=== PATIENT | female | born 1990 | race Caucasian/White ===

== ENCOUNTER → 2023-08-29 | Outpatient (CLI) | payer OTHER ==
[2023-08-29 15:51] LABS: ALT 34 U/L (8-44); AST 16 U/L (13-35); Albumin 4.5 g/dL (3.8-4.9); Alkaline Phosphatase 67 U/L (41-126); BUN/Creat Ratio 20.75 Ratio (12.00-20.00); Blood Urea Nitrogen 16.6 mg/dL (9.0-27.0); Calcium 10.1 mg/dL (8.7-10.3); Carbon Dioxide 26.6 mmol/L (21.6-31.8); Chloride 107 mmol/L (96-109); Globulin 2.5 g/dL (1.6-3.3); Glucose 116 mg/dL (70-110); Magnesium 2.1 mg/dL (1.5-2.4); Potassium 4.5 mmol/L (3.5-5.5); Sodium 143 mmol/L (135-145); Total Bilirubin 0.2 mg/dL (0.3-1.2)
[2023-08-29 17:00] LABS: Basophils # (A) 0.06 X 10*3/uL (0.00-0.10); Basophils % (A) 0.9 %; Eosinophils # (A) 0.29 X 10*3/uL (0.04-0.35); Eosinophils % (A) 4.4 %; HCT 41.7 % (37.2-46.3); HGB 13.8 g/dL (12.0-15.0); Lymphocytes # (A) 1.61 X 10*3/uL (0.90-5.00); Lymphocytes % (A) 24.3 %; MCH 30.2 pg (27.0-32.0); MCHC 33.1 g/dL (32.0-37.0); MCV 91.2 FL (80.0-97.0); Mean Platelet Volume 8.3 FL (9.5-12.2); Monocytes # (A) 0.43 X 10*3/uL (0.20-1.00); Monocytes % (A) 6.5 %; NRBC Per 100 WBC 0 X 10*3/uL (0.00-0.01); Neutrophils % (A) 63.4 %; Platelet Count 984 X 10*3/uL (140-440); RBC 4.57 X 10*6/uL (4.10-5.20); RBC Morphology Normal (Normal); RDW 13.8 % (11.5-14.5); WBC 6.62 X 10*3/uL (4.50-10.00)
== END | disposition home or self-care (01) ==
LOC: LABWHC1 08:09
PROVIDERS: ATTEND Family Medicine
DX: R00.2 Palpitations (principal)
CPT/HCPCS: 36415; 80053; 83735; 84439; 84443; 85025

== ENCOUNTER → 2023-09-11 | Outpatient (CLI) | payer OTHER ==
--- NOTE | 2023-09-11 09:50 | CA ---
Transthoracic Echo Report Name: Karen Santos Age: 33 Gender: F : 1990 Exam Date: 09/11/2023 08:44 Exam Location: [facility] Ht (in): 63 Wt (lb): 264 Ordering Physician: Min Nelson DO Attending/Referring Phys: Min Nelson DO [employer]ist Cassandra Fuller, RDCS Procedure CPT: Indications: R00.2 palpitations Cardiac Hx: obesity, family HX Technical Quality: Fair Contrast 1: Total Dose (mL): Contrast 2: Total Dose (mL): MEASUREMENTS (Male / Female) Normal Values 2D ECHO LV Diastolic Diameter PLAX 4.7 cm 4.2 - 5.9 / 3.9 - 5.3 cm LV Systolic Diameter PLAX 3.2 cm IVS Diastolic Thickness 1.1 cm 0.6 - 1.0 / 0.6 - 0.9 cm LVPW Diastolic Thickness 1.1 cm 0.6 - 1.0 / 0.6 - 0.9 cm LV Relative Wall Thickness 0.5 RV Internal Dim ED PLAX 3.4 cm LA Systolic Diameter LX 4.0 cm 3.0 - 4.0 / 2.7 - 3.8 cm M-MODE Aortic Root Diameter MM 2.8 cm DOPPLER AV Peak Velocity 126.9 cm/s AV Peak Gradient 6.4 mmHg MV Area PHT 3.9 cm??? Mitral E Point Velocity 95.2 cm/s Mitral A Point Velocity 93.1 cm/s Mitral E to A Ratio 1.0 MV Deceleration Time 193.6 ms LV E' Lateral Velocity 7.5 cm/s Mitral E to LV E' Lateral Ratio 12.7 LV E' Septal Velocity 7.3 cm/s Mitral E to LV E' Septal Ratio 13.1 TR Peak Velocity 237.3 cm/s TR Peak Gradient 22.5 mmHg Right Ventricular Systolic Press 26.8 mmHg FINDINGS Left Ventricle Left ventricular ejection fraction is estimated at 55-60 %. Left ventricular cavity size normal. Mildly increased septal wall thickness. Mildly increased posterior wall thickness. Right Ventricle Mild right ventricular dilatation. Right ventricular systolic pressure within normal limits. Right Atrium Right atrium not well visualized. Left Atrium Mildly increased left atrial diameter. Mildly increased left atrial area. Mitral Valve Structurally normal mitral valve. No mitral stenosis, regurgitation or prolapse. Aortic Valve Trileaflet aortic valve. No aortic valve stenosis or regurgitation. Tricuspid Valve Structurally normal tricuspid valve. Mild tricuspid regurgitation. Pulmonic Valve Structurally normal pulmonic valve. Trace pulmonic regurgitation. Pericardium No pericardial effusion. Aorta Normal size aortic root and proximal ascending aorta. CONCLUSIONS Left ventricular ejection fraction is estimated at 55-60 %. No obvious regional wall motion abnormality Mild concentric LVH Mild RV dilatation. RVSP estimated at <30 mmHg No significant valve dysfunction Previewed by: Dr Narayan Rubio (Electronically Signed) Final Date: 11 September 2023 09:50
== END | disposition home or self-care (01) ==
LOC: RADECHMAIN 07:44
PROVIDERS: ATTEND Family Medicine
DX: R00.2 Palpitations (principal)
CPT/HCPCS: 93005; 93306

== ENCOUNTER → 2023-09-12 | Outpatient (CLI) | payer OTHER ==
--- NOTE | 2023-09-18 13:05 | P.HOLTER ---
48 Hour Holter monitor note: Patient wore a Holter monitor for 48 hrs from 09/12/2023 through 09/14/2023. Findings: Patient's baseline heart rate was normal sinus rhythm. There were no signficant atrial fibrillation, atrial flutter, or ventricular tachycardia episodes. There were no significant pauses greater than 2 seconds. Patient's minimum heart rate was 55. Patient's maximum heart rate was 139. Patient's average heart rate was 82. there were rare PVCs representing less than 1% PVC burden There was one patient activated events which corresponded with a PVC Conclusions: 48 hour Holter monitor showing normal sinus rhythm and rare PVCs. One PVC corresponded with patient activated event.
== END | disposition home or self-care (01) ==
LOC: RADECHMAIN 08:06
PROVIDERS: ATTEND Family Medicine
DX: I49.3 Ventricular premature depolarization (principal); R00.2 Palpitations
CPT/HCPCS: 93225; 93226